=== PATIENT | male | born 1990 | race Hispanic/Latino ===

== ENCOUNTER 2018-01-14 08:24 | Emergency (ER) | payer SELFPAY ==
[2018-01-14 09:22] LABS: APPEARANCE,URINE Clear (CLEAR); BILIRUBIN,URINE Negative (NEGATIVE); COLOR,URINE Yellow (YELLOW); GLUCOSE, URINE (UA) Negative (NEGATIVE); KETONES,URINE Negative (NEGATIVE); LEUKOCYTE ESTERASE ,URINE Trace (NEGATIVE); NITRATE,URINE Negative (NEGATIVE); OCCULT BLOOD,URINE Negative (NEGATIVE); PROTEIN,URINE Negative (NEGATIVE)
[2018-01-14 09:36] LABS: BACTERIA,URINE Rare /HPF (None Seen); RBC,URINE 0-1 /HPF (0-1); SQUAMOUS EPITHELIAL CELL,UR Rare /HPF (0-2); WBC,URINE 0-1 /HPF (0-1)
[2018-01-14] MEDS ORDERED: CEFTRIAXONE SODIUM 500 MG VIAL ONE (09:43)
[2018-01-14] MEDS ORDERED: LIDOCAINE HCL-MPF 1% 2ML VIAL ONE (09:43)
== END 2018-01-14 10:07 | disposition home or self-care (01) ==
LOC: EDH 08:24
DX: N34.2 Other urethritis (principal); Z72.0 Tobacco use
CPT/HCPCS: 81001; 87088; 87486; 87797; 96372; 99284; J0696; J3490

== ENCOUNTER 2023-10-19 12:10 | Emergency (ER) | payer OTHER ==
[~2023-10-19] VITALS: Ht 170.2 cm; Wt 68.0 kg
[2023-10-19 12:12] VITALS: BP 136/78; PULSE 74; RESP 18
[2023-10-19] MEDS ORDERED: NEOM28.36 TP (12:26)
[2023-10-19] MEDS ORDERED: IBUP-2077 PO (12:26)
[2023-10-19] MEDS: NEOMY SULF/BACITRA/POLYMYXIN B 1 EACH PACKET TP ONE (13:25)
[2023-10-19] MEDS: IBUPROFEN 800 MG TAB PO ONE (13:25)
[2023-10-19] MEDS: TETANUS/DIPHTHERIA TOXOID [ADULT] 0.5 ML VIAL IM ONE (13:27)
== END 2023-10-19 13:43 | disposition home or self-care (01) ==
LOC: EDH 12:10
DX: T23.001A Burn of unspecified degree of right hand, unspecified site, initial encounter (principal); X08.8XXA Exposure to other specified smoke, fire and flames, initial encounter; Y93.89 Activity, other specified; Y92.89 Other specified places as the place of occurrence of the external cause; Y99.8 Other external cause status
CPT/HCPCS: 90471; 90714